=== PATIENT | male | born 2000 | race Caucasian/White ===

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

== ENCOUNTER 2019-10-31 05:49 | Emergency (ER) | payer OTHER ==
[~2019-10-31] VITALS: Ht 180.3 cm; Wt 72.0 kg
--- NOTE | 2019-10-31 06:07 | NUR ---
PT TO ED WITH PARENTS POST GLF AT WORK. PT REPORTS TRIPPING OVER BOX WHILE HOLDING "SOMETHING". REPORTS LEFT MEDIAL KNEE PAIN AND RIGHT ELBOW PAIN INCREASED WITH MOTION. PT REQUESTS WORKMANS COMP FORM TO BE COMPLETED. PT CONNECTED TO MONITORING, CALL LIGHT WITHIN REACH, ALL SAFETY MEASURES IN PLACE. PT UPDATED ON POC.
--- NOTE | 2019-10-31 06:45 | NUR ---
REPROT TO DIOR SUAREZ.
[2019-10-31 07:03] VITALS: BP 141/74
--- NOTE | 2019-10-31 07:30 | NUR ---
[employer]IXTO LASSITER AT BEDSIDE FOR EVALUATION
--- NOTE | 2019-10-31 08:13 | NUR ---
DISCHARGE INSTRUCTIONS REVIEWED
== END 2019-10-31 08:30 | disposition home or self-care (01) ==
LOC: ED 07:50
DX: S50.01XA Contusion of right elbow, initial encounter (principal); S80.02XA Contusion of left knee, initial encounter; W01.0XXA Fall on same level from slipping, tripping and stumbling without subsequent striking against object, initial encounter; Y93.89 Activity, other specified; Y92.69 Other specified industrial and construction area as the place of occurrence of the external cause; Y99.8 Other external cause status
CPT/HCPCS: 29505; 99284